=== PATIENT | male | born 1995 | race Caucasian/White ===

== ENCOUNTER 2017-03-12 20:22 | Emergency (ER) | payer BC ==
--- NOTE | 2017-03-12 20:41 | EMERGENCY ROOM VISIT NOTE ---
ED Visit Note First contact with patient: 20:30 CHIEF COMPLAINT: Alcohol overdose HISTORY OF PRESENT ILLNESS: This 21-year-old male patient presents to the emergency department via ambulance for evaluation of an alcohol overdose. History is limited secondary to intoxication. He currently denies any pain, difficulty breathing, fall or injuries. REVIEW OF SYSTEMS: Once the patient was able to reliably answer questions a review of systems was performed with positives and pertinent negatives listed in the history of present illness. All other systems were reviewed and are negative. ALLERGIES: No known drug allergies MEDICATIONS: Unable to obtain PMH: Unable to obtain SOCIAL HISTORY: Positive for EtOH PHYSICAL EXAM: VITALS: Vitals are noted on the nurse's note and reviewed by myself. Vital signs stable. GENERAL: 21-year-old male, sleeping. Arousable to loud verbal stimuli The patient is visibly intoxicated and altered SKIN: The skin was without obvious lacerations, abrasions, or rashes. Capillary reflex less than 2 seconds. HEENT: Normocephalic, atraumatic. PERRLA. EOMI. Conjunctiva with mild injection without icterus. No epistaxis. Neck is supple without cervical spine tenderness. HEART: Regular rate and rhythm without murmurs gallops or rubs. Peripheral pulses 2+. LUNGS: Clear to auscultation bilaterally without wheezes, rales or rhonchi. ABDOMEN: Positive bowel sounds x 4. MUSCULOSKELETAL: The patient is moving all of his extremities. He does not follow commands. NEUROLOGIC: The patient is visibly intoxicated. Responding to loud verbal stimuli. Does not answer questions appropriately. EMERGENCY DEPARTMENT COURSE: I examined the patient. Conservative care measures were instituted. The patient was placed in a prone position. Aspiration precautions were instituted. The patient was placed on monitor and storage bin tender and watched during the patient's stay. The patient's blood alcohol level was 293 milligrams per deciliter. The patient did sober up and was able to talk, walk, and drink fluids without difficulty. The patient was given alcohol intoxication handouts. The patient was discharged home in stable condition with a buggy driver. DIAGNOSIS: Acute alcohol intoxication DISCHARGE INSTRUCTIONS & TREATMENT: Increase fluids over the next 48 hours. Refrain from alcohol use and drug use Tylenol 500 mg every 6 hours as needed for pain/headache Follow-up with [facility] [address] as needed Do not drive or operate machinery for the next 24 hours. This chart was completed in part utilizing [employer] Speech Voice Recognition software. Attempts were made to minimize the grammatical errors, random word insertions, pronoun errors and incomplete sentences. Any formal questions or concerns about the content, text or information contained within the body of this dictation should be directly addressed to the provider for clarification.
[2017-03-13 02:34] VITALS: BP 117/71; PULSE 70; O2SAT 99
== END 2017-03-13 02:35 | disposition home or self-care (01) ==
LOC: EDBD 20:22 → C.EDD 20:23
DX: F10.129 Alcohol abuse with intoxication, unspecified (principal); Y90.8 Blood alcohol level of 240 mg/100 ml or more